=== PATIENT | male | born 1990 | race African-American/Black ===

== ENCOUNTER 2019-11-05 17:44 | Emergency (ER) | payer BC, SELFPAY ==
[2019-11-05 18:28] VITALS: BP 107/87; PULSE 90; RESP 16; TEMP 37.1; O2SAT 99
--- NOTE | 2019-11-05 18:35 | ED.EAR ---
HPI - Ear Problem General Chief complaint: Ear Stated complaint: ear infection Time Seen by Provider: 11/05/19 18:35 Source: patient and RN notes reviewed Mode of arrival: ambulatory Limitations: no limitations History of Present Illness HPI Narrative: This is a 28 years old male presented office for evaluation of right ear clogged for 2-day. He also described as fluid like pressure/muffle noise. Denies associated symptoms such as sore throat, cough, or fever. No treatment prior to arrival Related Data Home Medications Medication Instructions Recorded Confirmed No Home Medications 11/05/19 11/05/19 Allergies Allergy/AdvReac Type Severity Reaction Status Date / Time No Known Allergies Allergy Verified 11/05/19 18:09 Review of Systems Review of Systems: Narrative: CONSTITUTIONAL: Denies fever, chills ENT: Denies congestion, sore throat CARDIOVASCULAR: Denies chest pain RESPIRATORY: Denies dyspnea, wheezing, cough GASTROINTESTINAL: Denies abdominal pain, nausea, vomiting SKIN: Denies rash MUSCULOSKELETAL: Denies acute back pain NEUROLOGIC: Denies lightheaded PMFSH Comments At time of signature, I agree with nursing past medical, surgical, social and family history. There is no relevant family history pertinent to the presenting complaint. Exam Narrative: Exam Narrative: GENERAL: This is a well-nourished, well-developed patient, in no apparent distress. EYES: Sclera clear/white. Vision is grossly intact. EARS: External ears normal, auditory canals clear and without drainage, bilateral TM noted cerumen impaction. Hearing grossly intact. NOSE: External nose normal with no obvious nasal discharge, nares without redness, no rhinorrhea. THROAT: Mucous membranes moist, posterior pharynx clear. NECK: Neck supple, non-tender without lymphadenopathy, masses or thyromegaly. CARDIOVASCULAR: Regular rate and rhythm without murmurs, gallops, or rubs. RESPIRATORY: Clear to auscultation. Breath sounds equal bilaterally. No wheezes, rales, or rhonchi. GASTROINTESTINAL: Abdomen soft, non-tender, nondistended. Bowel sounds are active.No guarding. SKIN: warm, intact with no suspicious lesions or rash, good texture and turgor. NEURO: awake, alert, and oriented to person, place and time. There were no obvious focal neurologic abnormalities. Steady gait Rosie Coma Scale Eye Opening: Spontaneous 4 Rosie Coma Scale Motor: Obeys Commands 6 [place] Coma Scale Verbal: Oriented 5 Course Vital Signs Vital signs: Vital Signs Temperature 98.7 F 11/05/19 18:28 Pulse Rate 90 11/05/19 18:28 Respiratory Rate 16 11/05/19 18:28 Blood Pressure 107/87 11/05/19 18:28 Pulse Oximetry 99 11/05/19 18:28 Temperature 98.7 F 11/05/19 18:28 Pulse Rate 90 11/05/19 18:28 Respiratory Rate 16 11/05/19 18:28 Blood Pressure 107/87 11/05/19 18:28 Pulse Oximetry 99 11/05/19 18:28 Procedures Ear Wax Removal Both Ears: Ear Wax Removal Date: 11/05/19 Ear Wax Removal Time: 18:52 Results: Re-examined: cerumen removed completely TM Examination: TM(s) intact, normal appearance Patient Tolerated Procedure: well and no complications Complications: no problems Additional Comments: No foreign body noted. Medical Decision Making Vital Signs Vital Signs: Vital Signs Temperature 98.7 F 11/05/19 18:28 Pulse Rate 90 11/05/19 18:28 Respiratory Rate 16 11/05/19 18:28 Blood Pressure 107/87 11/05/19 18:28 Pulse Oximetry 99 11/05/19 18:28 Temperature 98.7 F 11/05/19 18:28 Pulse Rate 90 11/05/19 18:28 Respiratory Rate 16 11/05/19 18:28 Blood Pressure 107/87 11/05/19 18:28 Pulse Oximetry 99 11/05/19 18:28 Critical Care Time Critical Care Time Critical Care Time: No Discharge Plan Discharge Clinical Impression: Cerumen impaction Qualifiers: Laterality: bilateral Qualified Code(s): H61.23 - Impacted cerumen, bilateral Acute se
== END 2019-11-05 19:03 | disposition home or self-care (01) ==
PROVIDERS: Emergency Provider Nurse Practitioner
DX: H61.23 Impacted cerumen, bilateral (principal); H65.01 Acute serous otitis media, right ear
CPT/HCPCS: 69210; 99202; G0463